=== PATIENT | female | born 1980 | race Caucasian/White ===

== ENCOUNTER → 2017-11-11 | Outpatient (CLI) | payer OTHER ==
[~2017-11-11] MED LIST: AZIT250T89 PO; IBUP200T49 PO; LABE100T3 PO; LABE200T3 PO; LEVO25TA2 PO; LORA-702 PO; METH250T PO; METH500T2 PO; PREN1TAB60 PO
== END | disposition home or self-care (01) ==
LOC: RAD 16:21
PROVIDERS: ATTEND Orthopaedic Surgery
DX: M25.461 Effusion, right knee (principal); M79.89 Other specified soft tissue disorders

== ENCOUNTER → 2018-02-08 | Outpatient (CLI) | payer OTHER | END | disposition home or self-care (01) | LOC: CFH 10:36 | PROVIDERS: ATTEND Family Medicine | DX: E83.51 Hypocalcemia (principal) | CPT/HCPCS: 36415; 82330; 83970 ==

== ENCOUNTER → 2018-02-14 | Outpatient (CLI) | payer OTHER | END | disposition home or self-care (01) | LOC: CFH 12:35 | PROVIDERS: ATTEND Obstetrics & Gynecology | DX: Z80.3 Family history of malignant neoplasm of breast (principal) | CPT/HCPCS: 77066 ==

== ENCOUNTER 2018-06-27 10:27 | Emergency (ER) | payer OTHER ==
[~2018-06-27] VITALS: Ht 157.5 cm; Wt 67.2 kg
[~2018-06-27 10:27] MED LIST changes: -LABE100T3 PO; +LABE100T6 PO; -LABE200T3 PO; +LABE200T6 PO; -METH250T PO; +METH250T3 PO; +METH500T11 PO; -METH500T2 PO
[2018-06-27] MEDS ORDERED: ONDANSETRON ODT 4 MG ONE (11:17)
[2018-06-27] MEDS ORDERED: MECLIZINE CHEWABLE 25 MG TAB ONE (11:17)
[2018-06-27] MEDS ORDERED: ONDANSETRON ODT 4 MG PO ONE (11:30)
[2018-06-27] MEDS ORDERED: SODIUM CHLORIDE 0.9% 1,000ML IVBOLUS ONE (11:30)
[2018-06-27] MEDS ORDERED: SODIUM CHLORIDE FLUSH 10ML SYR IVF ONE (11:30)
[2018-06-27] MEDS ORDERED: MECLIZINE CHEWABLE 25 MG TAB PO ONE (11:30)
[2018-06-27 11:34] LABS: BASOPHILS # (AUTO) 0.04 x10^3/uL (0-0.1); BASOPHILS % (AUTO) 1 % (0-1); EOSINOPHILS # (AUTO) 0.04 x10^3/uL (0-0.4); EOSINOPHILS % (AUTO) 1 % (1-7); LYMPHOCYTES # (AUTO) 1.31 x10^3/uL (1-3.4); LYMPHOCYTES % (AUTO) 19 % (22-44); MD NO; MEAN CORPUSCULAR HEMOGLOBIN 28.9 pg (27.0-34.8); MEAN CORPUSCULAR VOLUME 84.9 fL (80-100); MEAN PLATELET VOLUME 7.3 fL (7.4-10.4); MONOCYTES # (AUTO) 0.47 x10^3/uL (0.2-0.8); MONOCYTES % (AUTO) 7 % (2-9); NEUTROPHILS # (AUTO) 5.16 x10^3/uL (1.8-6.8); NEUTROPHILS % (AUTO) 74 % (42-75); PLATELET COUNT 255 x10^3/uL (130-400); RED BLOOD COUNT 4.87 x10^6/uL (3.82-5.3); RED CELL DISTRIBUTION WIDTH 13.3 % (9.6-15.2)
[2018-06-27 11:49] LABS: ALBUMIN 4.2 g/dL (3.4-5.0); ANION GAP 9 mmol/L (5-15); CALCIUM 8.7 mg/dL (8.5-10.1); CHLORIDE 110 mmol/L (98-107)
[2018-06-27] MEDS ORDERED: DIAZEPAM 5 MG TABLET ONE (12:21)
[2018-06-27] MEDS ORDERED: DIAZEPAM 5 MG/ML, 2ML IV ONE (12:30)
[2018-06-27 13:23] VITALS: BP 122/75
== END 2018-06-27 13:25 | disposition home or self-care (01) ==
LOC: ED 13:19
DX: H81.391 Other peripheral vertigo, right ear (principal); H83.01 Labyrinthitis, right ear; I10 Essential (primary) hypertension
CPT/HCPCS: 36415; 70450; 80048; 82040; 84703; 85025; 93005; 96361; 96374; 99285; J3360; J7030; Q0162

== ENCOUNTER → 2018-12-13 | Outpatient (CLI) | payer OTHER | END | disposition home or self-care (01) | LOC: LAB 16:11 | PROVIDERS: ATTEND Family Medicine | DX: E03.9 Hypothyroidism, unspecified (principal) | CPT/HCPCS: 36415; 84443 ==

== ENCOUNTER → 2020-07-16 | Outpatient (CLI) | payer OTHER | END | disposition home or self-care (01) | LOC: CFH 13:16 | PROVIDERS: ATTEND Nurse Practitioner | DX: Z12.31 Encounter for screening mammogram for malignant neoplasm of breast (principal); Z80.3 Family history of malignant neoplasm of breast | CPT/HCPCS: 76641; 77063; 77067 ==

== ENCOUNTER 2021-01-01 20:19 | Emergency (ER) | payer OTHER ==
[~2021-01-01] VITALS: Ht 157.5 cm; Wt 72.1 kg
[2021-01-01] MEDS ORDERED: LEVO50TA PO (20:48)
[2021-01-01] MEDS ORDERED: LABE100T6 PO (20:48)
[2021-01-01] MEDS ORDERED: AMLO-211 PO (20:48)
[2021-01-01] MEDS ORDERED: CAPT25TA3 PO (20:48)
--- NOTE | 2021-01-01 20:59 | NUR ---
PT CAME INTO ED THIS EVENING D/T WHILE OUT WALKING BEGINNING TO DEVELOP SOME CHEST PRESSURE. PT REPORTS SOME DIZZINESS AT THE SAME TIME THAT HAS SINCE PASSED, PULSES 2+. REPORT THE PRESSURE IS MIDLINE FROM EPIGASTRIC REGION TO NECK. PT RESTING ON GURNEY, PROVIDED WARM BLANKETS FOR COMFORT, NAD, DENIES ADDITIONAL NEEDS AT THIS TIME. LABS DRAWN. WCTM. PT PLACED ON SPO2/BP/ECG MONITORING
[2021-01-01] MEDS ORDERED: ASPIRIN 81 MG TABLET CHEW PO ONE (21:00)
[2021-01-01] MEDS ORDERED: ASPIRIN 81 MG TABLET CHEW ONE (21:08)
[2021-01-01 21:21] LABS: BASOPHILS % (AUTO) 1 % (0-1); EOSINOPHILS % (AUTO) 1 % (1-7); LYMPHOCYTES % (AUTO) 22 % (22-44); MEAN CORPUSCULAR HGB CONC 34.4 g/dL (32.4-35.8); MEAN PLATELET VOLUME 7.4 fL (7.4-10.4); MONOCYTES % (AUTO) 7 % (2-9); NEUTROPHILS % (AUTO) 69 % (42-75); PLATELET COUNT 284 x10^3/uL (130-400); RED BLOOD COUNT 4.72 x10^6/uL (3.82-5.3)
[2021-01-01 21:31] LABS: ALBUMIN 4.5 g/dL (3.4-5.0); ANION GAP 6 mmol/L (5-15); CHLORIDE 110 mmol/L (98-107)
[2021-01-01 21:37] LABS: ALANINE AMINOTRANSFERASE 24 U/L (12-78); ALKALINE PHOSPHATASE 50 U/L (45-117); BILIRUBIN,TOTAL 0.5 mg/dL (0.2-1.0); CREATININE 1.06 mg/dL (0.55-1.02); TOTAL PROTEIN 8.1 g/dL (6.4-8.2); TROPONIN I < 0.015 ng/mL (0.000-0.045)
[2021-01-01 21:46] LABS: MD NO
--- NOTE | 2021-01-01 21:48 | NUR ---
PT RESTING ON GURNEY, APPEARS COMFORTABLE AT THIS TIME. VSS, PT NAD, DENIES ADDITIONAL NEEDS OR QUESTIONS AT THIS TIME, APPEARS COMFORTABLE. BED IN LOWEST, RAILS ENGAGED, CALL LIGHT ON LAP, WCTM. WAITING FOR LAB RESULTS
--- NOTE | 2021-01-01 22:46 | NUR ---
PT NAD, RESTING ON GURNEY, UPDATED ON POC, AMBULATED TO AND FROM RESTROOM WITH A SMOOTH AND STEADY GAIT. MORGAN, RN CALLED LAB FOR DDIMER RESULTS, STATES RESULTS SHOULD BE RELEASED IN MINUTES. PT DENIES ADDITIONAL NEEDS AT THIS TIME. BED IN LOWEST, CALL LIGHT ON LAP, RAILS ENGAGED, WCTM.
[2021-01-01 23:34] VITALS: BP 129/79
--- NOTE | 2021-01-01 23:35 | NUR ---
Patient given discharge instructions and they have confirmed that they understand the instructions. Patient ambulatory with steady gait. NAD, DENIES ADDITIONAL QUESTIONS OR NEEDS AT THIS TIME. VSS. NO PERSONAL BELONGINGS LEFT IN ROOM AFTER DC.
== END 2021-01-01 23:42 | disposition home or self-care (01) ==
LOC: ED 23:01
DX: R07.89 Other chest pain (principal); R00.2 Palpitations; R06.02 Shortness of breath; R42 Dizziness and giddiness; I10 Essential (primary) hypertension; E03.9 Hypothyroidism, unspecified
CPT/HCPCS: 36415; 71045; 80053; 83690; 83880; 84484; 84703; 85025; 85379; 93005; 99285